=== PATIENT | female | born 1990 | race Native Hawaiian/Other Pacific Islander ===

== ENCOUNTER 2019-09-22 12:28 | Emergency (ER) | payer OTHER ==
[~2019-09-22] VITALS: Ht 170.2 cm; Wt 63.5 kg
[2019-09-22] MEDS ORDERED: WELLBUTRIN150 MG PO (12:46)
[2019-09-22 13:53] VITALS: BP 118/80; TEMP 98.8
== END 2019-09-22 13:53 | disposition home or self-care (01) ==
LOC: ED 12:28
DX: K08.89 Other specified disorders of teeth and supporting structures (principal); G43.909 Migraine, unspecified, not intractable, without status migrainosus; Z3A.18 18 weeks gestation of pregnancy; F17.210 Nicotine dependence, cigarettes, uncomplicated
CPT/HCPCS: 96372; 99283; J0696; J2405